=== PATIENT | female | born 1965 | race Caucasian/White ===

== ENCOUNTER → 2017-11-10 | Emergency (ER) | payer OTHER ==
[~2017-11-10] VITALS: Ht 157.5 cm; Wt 53.1 kg
[~2017-11-10] MED LIST: ALLEGRA-D1 TAB.SR . PO; BUCALSEP SPRAY30 ML MM; LEVOXYL50 MCG; MEDROL8 MG PO; TUSSI PRES-B L120 M1 PO
== END | disposition home or self-care (01) ==
LOC: ER 10:12
DX: B34.9 Viral infection, unspecified (principal)